=== PATIENT | male | born 1970 | race Caucasian/White ===

== ENCOUNTER → 2017-11-09 | Outpatient (CLI) | payer OTHER ==
[~2017-11-09] MED LIST: ALBUTEROL INH IH; HYDROCODON-ACE1 EAC7 PO; LIALDA1.2 GM PO; METOCLOPRAMIDE10 MG PO; NASONEX17 GM NS; REGLAN 10 MG TA10 MG PO
== END ==
LOC: CAT 10:11
DX: J32.9 Chronic sinusitis, unspecified (principal)